=== PATIENT | male | born 1950 | race Caucasian/White ===

== ENCOUNTER 2017-08-09 11:51 | Outpatient (CLI) | payer SELFPAY | END 2017-08-09 11:52 | disposition EMS.NT | LOC: EMS 11:51 | PROVIDERS: ATTEND Surgery | DX: R55 Syncope and collapse (principal) ==

== ENCOUNTER 2019-10-05 18:58 | Outpatient (CLI) | payer MEDICARE | END 2019-10-05 23:59 | disposition short-term general hospital (02) | LOC: EMS 18:58 | PROVIDERS: ATTEND Surgery | DX: R55 Syncope and collapse (principal); R42 Dizziness and giddiness | CPT/HCPCS: A0425; A0427; A0888 ==

== ENCOUNTER 2023-01-30 23:19 | Outpatient (CLI) | payer MEDICARE | END 2023-01-30 23:20 | disposition EMS.NT | LOC: EMS 23:19 | DX: R05.9 Cough, unspecified (principal) ==

== ENCOUNTER 2023-01-31 08:00 | Outpatient (CLI) | payer MEDICARE, OTHER | END 2023-01-31 23:59 | disposition home or self-care (01) | LOC: LAB.N 08:00 | PROVIDERS: ATTEND Registered Nurse | DX: U07.1 COVID-19 (principal) ==